=== PATIENT | female | born 1955 | race Caucasian/White ===

== ENCOUNTER → 2017-02-13 | Outpatient (CLI) | payer MEDICARE ==
[2016-09-23 14:18] VITALS: BP 118/74
[~2017-02-13] MED LIST: ASPI-630 PO; BUSP5TAB PO; CHOL100013 PO; CITA40TA5 PO; ESCITALOPRAM OX10 MG PO; LEVO50TA5 PO; LEVO75TA5 PO; MELA1TAB12 PO; OMEP20CA9 PO; OMEP40CA5 PO; QUET400T4 PO; TRAZ300T2 PO; ZINC50TA33 PO
[2017-02-13 14:01] LABS: BACTERIA,URINE 0 /HPF (0-FEW); BILIRUBIN,URINE NEG (NEG); CLARITY,URINE CLEAR; COLOR,URINE YELLOW; GLUCOSE,URINE NEG (NEG); NITRITE,URINE NEG (NEG); RBC,URINE 0 /HPF (0-2); SQUAMOUS EPITHELIAL CELL,UR OCC /LPF; UROBILINOGEN,URINE 0.2 mg/dL (0.2 mg/dL); WBC,URINE 0 /HPF (0-4)
== END | disposition home or self-care (01) ==
LOC: SPEC 12:50
PROVIDERS: ATTEND Internal Medicine
DX: N39.0 Urinary tract infection, site not specified (principal)
CPT/HCPCS: 81001